=== PATIENT | male | born 1985 | race Caucasian/White ===

== ENCOUNTER 2023-02-08 15:40 | Emergency (ER) | payer SELFPAY ==
[~2023-02-08] VITALS: Ht 170.2 cm; Wt 62.1 kg
[2023-02-08 15:45] VITALS: BP 130/89
[2023-02-08] MEDS ORDERED: NACL 0.9% 1,000 ML IV ONE ×2 (17:05)
[2023-02-08] MEDS ORDERED: ONDANSETRON 4 MG/2 ML VIAL IVP ONE (17:05)
[2023-02-08] MEDS ORDERED: MORPHINE SULFATE 4 MG/ML SYR IVP ONE ×2 (17:05→18:20)
[2023-02-08 17:38] LABS: BASOPHILS % (AUTO) 0.2 % (0.0-2.0); EOSINOPHILS # (AUTO) 0.2 K/uL (0-0.4); EOSINOPHILS % (AUTO) 4.2 % (0.0-4.0); HEMOGLOBIN 13.9 g/dL (12.0-18.0); LYMPHOCYTES # (AUTO) 1.9 K/uL (2.0-11.5); LYMPHOCYTES % (AUTO) 38.5 % (20.5-51.1); MEAN CORPUSCULAR HEMOGLOBIN 30 pg (27-31); MEAN CORPUSCULAR HGB CONC 35 g/dL (33-37); MEAN CORPUSCULAR VOLUME 85.2 fL (80-94); MONOCYTES # (AUTO) 0.4 K/uL (0.8-1.0); MONOCYTES % (AUTO) 8.3 % (1.7-9.3); NEUTROPHILS # (AUTO) 2.3 K/uL (1.8-7.7); NEUTROPHILS % (AUTO) 48.8 % (42.2-75.2); PLATELET COUNT (AUTO) 302 K/uL (140-450); RED CELL DISTRIBUTION WIDTH 12.9 % (11.6-13.7); WHITE BLOOD COUNT (AUTO) 4.8 K/uL (4.8-10.8)
[2023-02-08 17:55] LABS: ALBUMIN 3.5 g/dL (3.4-5.0); ANION GAP 12.3 (8-16); CARBON DIOXIDE 25.9 mmol/L (21-32); CREATININE 0.8 mg/dL (0.6-1.3); POTASSIUM 3.2 mmol/L (3.5-5.1); TOTAL BILIRUBIN 0.7 mg/dL (0.0-1.0)
[2023-02-08] MEDS ORDERED: ONDA-188 SL (19:04)
[2023-02-08] MEDS ORDERED: BEN10 PO (19:04)
--- NOTE | 2023-02-08 19:28 | NUR ---
received on bed, A/Ox4, not in distress, with pain scale of "8/10"
[2023-02-08 19:37] VITALS: BP 133/90
--- NOTE | 2023-02-08 19:37 | NUR ---
Patient discharged with v/s stable. Written and verbal after care instructions given and explained. Patient alert, oriented and verbalized understanding of instructions. Ambulatory with steady gait. All questions addressed prior to discharge. ID band removed. Patient advised to follow up with PMD. Rx given to patient. Patient educated on indication of medication including possible reaction and side effects. Opportunity to ask questions provided and answered. 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
== END 2023-02-08 19:37 | disposition home or self-care (01) ==
LOC: MED 15:40
DX: K52.9 Noninfective gastroenteritis and colitis, unspecified (principal); R11.2 Nausea with vomiting, unspecified; Z79.899 Other long term (current) drug therapy
CPT/HCPCS: 36415; 74176; 80053; 83605; 83690; 85025; 86886; 86900; 86901; 87040; 96361; 96374; 96375; 96376; 99285; J2270; J2405; J7030

== ENCOUNTER 2023-02-10 05:40 | Emergency (ER) | payer SELFPAY ==
[~2023-02-10] VITALS: Ht 170.2 cm; Wt 61.2 kg
[~2023-02-10 05:40] MED LIST: BEN10 PO; ONDA-188 SL
[2023-02-10 05:51] VITALS: BP 140/90
[2023-02-10] MEDS ORDERED: ONDANSETRON 4 MG/2 ML VIAL IVP ONE (06:15)
[2023-02-10] MEDS ORDERED: KETOROLAC 15 MG/ML VIAL IVP ONE (06:15)
--- NOTE | 2023-02-10 06:20 | NUR ---
MD Stout at bedside examining pt.
[2023-02-10] MEDS ORDERED: NACL 0.9% 1,000 ML IV ONE (06:25)
--- NOTE | 2023-02-10 06:27 | NUR ---
Pt ambulatory from home; seen in ED x2 days ago and returns with worsening abd pain to RLQ associated with N/V and constipation. Denies PMH. Allergies: Terra flu
--- NOTE | 2023-02-10 06:34 | NUR ---
Jesus pacheco in [facility] - 02/10/23 at 0636 by MORTEZA PT. TAKEN TO X-RAY
[2023-02-10 06:36] LABS: HEMOGLOBIN 13.8 g/dL (12.0-18.0); MEAN CORPUSCULAR HEMOGLOBIN 29 pg (27-31); MEAN CORPUSCULAR HGB CONC 35 g/dL (33-37); MEAN CORPUSCULAR VOLUME 84.7 fL (80-94); PLATELET COUNT (AUTO) 341 K/uL (140-450); RED BLOOD CELL COUNT(AUTO) 4.73 MIL/uL (4.20-6.10); RED CELL DISTRIBUTION WIDTH 12.9 % (11.6-13.7); WHITE BLOOD COUNT (AUTO) 4.5 K/uL (4.8-10.8)
--- NOTE | 2023-02-10 06:38 | NUR ---
X-Ray at bedside.
[2023-02-10 07:00] LABS: ALBUMIN 3.4 g/dL (3.4-5.0); ANION GAP 16.4 (8-16); CARBON DIOXIDE 22.2 mmol/L (21-32); CREATININE 0.7 mg/dL (0.6-1.3); POTASSIUM 3.6 mmol/L (3.5-5.1); TOTAL BILIRUBIN 0.8 mg/dL (0.0-1.0)
[2023-02-10 07:24] LABS: BASOPHILS % (MANUAL) 0 % (0-2); EOSINOPHILS % (MANUAL) 0 % (0-4); LYMPHOCYTES % (MANUAL) 27 % (20-46); MONOCYTES % (MANUAL) 4 % (5-12)
[2023-02-10 07:50] LABS: APPEARANCE,URINE CLEAR (CLEAR); BILIRUBIN,URINE NEGATIVE (NEGATIVE); BLOOD, URINE NEGATIVE (NEGATIVE); COLOR,URINE YELLOW (YELLOW); LEUKOCYTE ESTERASE ,URINE NEGATIVE (NEGATIVE); NITRITE, URINE NEGATIVE (NEGATIVE); UGLUCOSE NEGATIVE (NEGATIVE)
[2023-02-10] MEDS ORDERED: HYDROcodone/APAP 5/325 MG 1 TAB TAB PO ONE (07:50)
--- NOTE | 2023-02-10 07:54 | NUR ---
Pt states, his pain is 8/10. MD ordered pain med. Will administer med for pain.
[2023-02-10 08:00] LABS: BARBITURATE, URINE NEGATIVE ng/ml (NEG <=200); BENZODIAZEPINE, URINE NEGATIVE ng/mL (NEG <=200); CANNABINOID, URINE POSITIVE ng/mL (NEG <=50); COCAINE, URINE NEGATIVE ng/mL (NEG <=300); OPIATE, URINE POSITIVE ng/mL (NEG <=2000); PHENCYCLIDINE SCREEN,URINE NEGATIVE ng/mL (NEG <=25)
[2023-02-10] MEDS ORDERED: HALOPERIDOL IM 5 MG/ML VIAL IVP ONE (08:15)
[2023-02-10] MEDS ORDERED: IBUP-2213 PO (09:42)
[2023-02-10] MEDS ORDERED: ACET-10509 PO (09:42)
[2023-02-10] MEDS ORDERED: METO-485 PO (09:42)
--- NOTE | 2023-02-10 10:05 | NUR ---
RESTING IN BED. ASLEEP, EASILY AROUSABLE. PAIN RESOLVED
[2023-02-10 10:24] VITALS: BP 137/89
--- NOTE | 2023-02-10 10:27 | NUR ---
Patient discharged with v/s stable. Written and verbal after care instructions given and explained. Patient alert, oriented and verbalized understanding of instructions. Ambulatory with steady gait. All questions addressed prior to discharge. ID band removed. IV access removed intact. Removal site WNL. Patient advised to follow up with PMD. Rx of Motrin, Tylenol, and Reglan given. Patient educated on indication of medication including possible reaction and side effects. Opportunity to ask questions provided and answered.
== END 2023-02-10 10:24 | disposition home or self-care (01) ==
LOC: MED 05:40
DX: K52.9 Noninfective gastroenteritis and colitis, unspecified (principal); F12.90 Cannabis use, unspecified, uncomplicated; Z79.899 Other long term (current) drug therapy; Z79.1 Long term (current) use of non-steroidal anti-inflammatories (NSAID); Z88.8 Allergy status to other drugs, medicaments and biological substances
CPT/HCPCS: 36415; 74022; 80053; 80305; 81003; 83605; 83690; 85025; 96361; 96372; 96374; 96375; 99285; J1630; J1885; J2405; J7030; Q0092

== ENCOUNTER 2023-03-01 00:38 | Emergency (ER) | payer SELFPAY ==
[~2023-03-01] VITALS: Ht 170.2 cm; Wt 59.0 kg
[~2023-03-01 00:38] MED LIST changes: +ACET-10509 PO; +IBUP-2213 PO; +METO-485 PO
[2023-03-01 00:55] VITALS: BP 126/89; PULSE 121; RESP 20; TEMP 98; O2SAT 98
--- NOTE | 2023-03-01 01:24 | NUR ---
walked urine to lab.
--- NOTE | 2023-03-01 01:52 | NUR ---
Dr. Cunha examining patient.
[2023-03-01] MEDS ORDERED: traMADol 50 MG TAB PO ONE (02:00)
[2023-03-01] MEDS ORDERED: ACYCLOVIR 200 MG CAP PO ONE (02:00)
[2023-03-01] MEDS ORDERED: ONDANSETRON 4 MG ODT PO ONE (02:00)
[2023-03-01] MEDS ORDERED: TRAM-748 PO (02:03)
[2023-03-01] MEDS ORDERED: ONDA-188 PO (02:03)
[2023-03-01] MEDS ORDERED: VALA1TAB40 PO (02:03)
[2023-03-01] MEDS ORDERED: MIRABULK PO (02:03)
[2023-03-01] MEDS ORDERED: TRAM50TA3 PO (02:04)
[2023-03-01] MEDS ORDERED: ACET-5629 PO (02:21)
== END 2023-03-01 02:30 | disposition home or self-care (01) ==
LOC: MED 00:38
DX: B02.9 Zoster without complications (principal); K59.00 Constipation, unspecified; Z76.0 Encounter for issue of repeat prescription; Z79.899 Other long term (current) drug therapy
CPT/HCPCS: 99284; Q0162

== ENCOUNTER 2023-03-03 22:38 | Emergency (ER) | payer SELFPAY ==
[~2023-03-03] VITALS: Ht 170.2 cm; Wt 55.8 kg
[~2023-03-03 22:38] MED LIST changes: +MIRABULK PO; +ONDA-188 PO; +VALA1TAB40 PO
[2023-03-03 22:55] VITALS: BP 140/87; PULSE 118; RESP 17; TEMP 97.7; O2SAT 99
--- NOTE | 2023-03-03 22:58 | NUR ---
TO LOBBY A/W BED AMBULATORY
[2023-03-03 23:00] VITALS: BP 140/87; PULSE 118; RESP 17; TEMP 97.7; O2SAT 99
[2023-03-04 00:44] LABS: BASOPHILS % (AUTO) 0.4 % (0.0-2.0); EOSINOPHILS # (AUTO) 0.1 K/uL (0-0.4); EOSINOPHILS % (AUTO) 1.5 % (0.0-4.0); HEMATOCRIT 37.1 % (36-52); HEMOGLOBIN 12.8 g/dL (12.0-18.0); LYMPHOCYTES # (AUTO) 1.2 K/uL (2.0-11.5); LYMPHOCYTES % (AUTO) 23.2 % (20.5-51.1); MEAN CORPUSCULAR HEMOGLOBIN 29 pg (27-31); MEAN CORPUSCULAR HGB CONC 35 g/dL (33-37); MEAN CORPUSCULAR VOLUME 85.1 fL (80-94); MONOCYTES # (AUTO) 0.6 K/uL (0.8-1.0); MONOCYTES % (AUTO) 11.5 % (1.7-9.3); NEUTROPHILS # (AUTO) 3.3 K/uL (1.8-7.7); NEUTROPHILS % (AUTO) 63.4 % (42.2-75.2); PLATELET COUNT (AUTO) 582 K/uL (140-450); RED BLOOD CELL COUNT(AUTO) 4.36 MIL/uL (4.20-6.10); RED CELL DISTRIBUTION WIDTH 12.6 % (11.6-13.7); WHITE BLOOD COUNT (AUTO) 5.3 K/uL (4.8-10.8)
[2023-03-04 01:01] LABS: ALBUMIN 2.6 g/dL (3.4-5.0); ANION GAP 11.8 (8-16); CREATININE 0.6 mg/dL (0.6-1.3); POTASSIUM 3.8 mmol/L (3.5-5.1); TOTAL BILIRUBIN 0.3 mg/dL (0.0-1.0)
[2023-03-04] MEDS ORDERED: BEN10 PO (01:55)
[2023-03-04] MEDS ORDERED: ACET-10509 PO (01:55)
--- NOTE | 2023-03-04 02:13 | NUR ---
Patient discharged with v/s stable. Written and verbal after care instructions given and explained. Patient alert, oriented and verbalized understanding of instructions. Ambulatory with steady gait. All questions addressed prior to discharge. ID band removed. Patient advised to follow up with PMD. Rx of TYLENOL AND BENTYL given. Patient educated on indication of medication including possible reaction and side effects. Opportunity to ask questions provided and answered.
== END 2023-03-04 02:13 | disposition home or self-care (01) ==
LOC: MED 22:38
DX: K64.4 Residual hemorrhoidal skin tags (principal); Z79.899 Other long term (current) drug therapy; Z79.1 Long term (current) use of non-steroidal anti-inflammatories (NSAID); Z88.8 Allergy status to other drugs, medicaments and biological substances
CPT/HCPCS: 36415; 80053; 85025; 99283